=== PATIENT | female | born 1985 | race Caucasian/White ===

== ENCOUNTER → 2024-08-04 | Outpatient (CLI) | payer OTHER | LOC: LAB SHORT 13:41 → LAB 13:41 | DX: N39.0 Urinary tract infection, site not specified (principal) | CPT/HCPCS: 87077; 87086; 87147; 87186 ==

== ENCOUNTER → 2024-10-09 | Outpatient (CLI) | payer OTHER ==
[~2024-10-09] MED LIST: ACET325 PO; ELIQUIS5 M2 PO; FAMO20 PO; METR500 PO
[2024-10-09 17:50] LABS: BASOPHILS ABSOLUTE AUTO 0.04 K/mm3 (0.00-0.23); BASOPHILS PERCENT AUTO 0 % (0-2); EOSINOPHILS ABSOLUTE AUTO 0.03 K/mm3 (0.00-0.68); EOSINOPHILS PERCENT AUTO 0 % (0-6); Hemoglobin 9.7 g/dL (11.5-16.0); IMMATURE GRAN ABSOLUTE AUTO 0.07 K/mm3 (0.00-0.10); IMMATURE GRAN PERCENT AUTO 1 % (0-1); LYMPHOCYTES ABSOLUTE AUTO 0.86 K/mm3 (0.84-5.20); LYMPHOCYTES PERCENT AUTO 8 % (21-46); MONOCYTES ABSOLUTE AUTO 0.98 K/mm3 (0.16-1.47); MONOCYTES PERCENT AUTO 9 % (4-13); Mean Corpuscular HGB 26.2 pg (26.0-34.0); Mean Corpuscular HGB Conc 31.3 g/dL (31.5-36.5); Mean Corpuscular Volume 84 fL (80-100); NEUTROPHILS ABSOLUTE AUTO 9.27 K/mm3 (1.96-9.15); NEUTROPHILS PERCENT AUTO 82 % (41-73); Platelet Count 357 K/mm3 (150-400); RDW Coefficient Variation 15.6 % (11.7-14.2); RDW Standard Deviation 46.9 fL (35.1-46.3); White Blood Cell Count 11.25 K/mm3 (4.00-11.30)
[2024-10-09 18:00] LABS: Albumin, Blood 2.9 g/dL (3.4-5.0); Albumin/Globulin Ratio 0.5 (0.8-1.8); Bilirubin, Total 0.6 mg/dL (0.1-1.0); Bun/Creatinine Ratio 6.9 (12.0-20.0); Calcium, Blood 9.6 mg/dL (8.5-10.1); Creatinine, Blood 2.45 mg/dL (0.40-1.00); Globulin, Blood 6.2 g/dL (2.2-4.0); Potassium, Blood 4.2 mmol/L (3.5-5.5); Total Protein, Blood 9.1 g/dL (6.4-8.2)
== END ==
LOC: LAB 17:45 → LAB SHORT 17:45
PROVIDERS: Internal Medicine
DX: R11.10 Vomiting, unspecified (principal)
CPT/HCPCS: 80053; 83690; 85025

== ENCOUNTER 2024-10-14 10:16 | Emergency (ER) | payer OTHER ==
[~2024-10-14] VITALS: Ht 172.7 cm; Wt 115.7 kg
[2024-10-14] MEDS ORDERED: LORazepam 2 MG/ML 1ML Injection IV ONE (11:05)
[2024-10-14 11:07] LABS: BASOPHILS ABSOLUTE AUTO 0.08 K/mm3 (0.00-0.23); BASOPHILS PERCENT AUTO 1 % (0-2); EOSINOPHILS ABSOLUTE AUTO 0.02 K/mm3 (0.00-0.68); EOSINOPHILS PERCENT AUTO 0 % (0-6); Hematocrit 30.6 % (33.0-51.0); Hemoglobin 9.7 g/dL (11.5-16.0); IMMATURE GRAN ABSOLUTE AUTO 0.06 K/mm3 (0.00-0.10); IMMATURE GRAN PERCENT AUTO 1 % (0-1); LYMPHOCYTES ABSOLUTE AUTO 1.53 K/mm3 (0.84-5.20); LYMPHOCYTES PERCENT AUTO 13 % (21-46); MONOCYTES ABSOLUTE AUTO 1.42 K/mm3 (0.16-1.47); MONOCYTES PERCENT AUTO 12 % (4-13); Mean Corpuscular HGB 26.1 pg (26.0-34.0); Mean Corpuscular HGB Conc 31.7 g/dL (31.5-36.5); Mean Corpuscular Volume 83 fL (80-100); Mean Platelet Volume 8.9 fL (9.1-12.4); NEUTROPHILS ABSOLUTE AUTO 8.82 K/mm3 (1.96-9.15); NEUTROPHILS PERCENT AUTO 74 % (41-73); Platelet Count 383 K/mm3 (150-400); RDW Coefficient Variation 15.9 % (11.7-14.2); RDW Standard Deviation 47.8 fL (35.1-46.3); Red Blood Cell Count 3.71 M/mm3 (3.80-5.20); White Blood Cell Count 11.93 K/mm3 (4.00-11.30)
[2024-10-14 11:22] LABS: Albumin/Globulin Ratio 0.5 (0.8-1.8); Bilirubin, Total 0.8 mg/dL (0.1-1.0); Bun/Creatinine Ratio 6.7 (12.0-20.0); Creatinine, Blood 2.08 mg/dL (0.40-1.00); Globulin, Blood 6.6 g/dL (2.2-4.0); Potassium, Blood 4.3 mmol/L (3.5-5.5); Total Protein, Blood 9.6 g/dL (6.4-8.2)
[2024-10-14] MEDS ORDERED: Ondansetron HCl 2 MG / ML 2ML Vial IV ONE (11:40)
[2024-10-14] MEDS ORDERED: NS 1,000 ML IV SCH (11:40)
[2024-10-14 14:40] LABS: Source, Urine Clean Catch
[2024-10-14 14:43] LABS: Appearance, Urine Clear (Clear); Bilirubin, Urine Neg (Neg); Blood, Urine 3+ (Neg); Color, Urine Amber (P-Yellow); Glucose Qualitative, Urine Neg (Neg); Ketones, Urine 1+ (Neg); Leukocyte Esterase, Urine 1+ (Neg); Nitrite, Urine Neg (Neg); Protein, Urine 3+ (Neg); Specific Gravity, Urine 1.015 (1.003-1.022); Urobilinogen, Urine 1+ (Normal); pH, Urine 6.5 (5.0-8.0)
[2024-10-14 14:50] LABS: Bacteria Many /hpf; Hyaline Casts 0-2 /lpf (0-2); Squamous Epithelial Cells Many /hpf (Few); Transitional Epithelial Cells Rare /hpf (0-Rare)
[2024-10-14] MEDS ORDERED: Metoclopramide HCl 5MG / ML 2ML Vial IV ONE (16:30)
[2024-10-14] MEDS ORDERED: HYDROmorphone HCl/Pf 1MG SYR IV ONE (16:30)
[2024-10-14] MEDS ORDERED: ELIQUIS5 M2 PO (18:55)
[2024-10-14] MEDS ORDERED: Apixaban 5 MG Tab PO ONE (18:55)
== END 2024-10-14 19:23 | disposition home or self-care (01) ==
LOC: ER 10:16
PROVIDERS: Physician Assistant
DX: I82.220 Acute embolism and thrombosis of inferior vena cava (principal); N28.89 Other specified disorders of kidney and ureter; N18.30 Chronic kidney disease, stage 3 unspecified; D63.1 Anemia in chronic kidney disease; N25.81 Secondary hyperparathyroidism of renal origin; E55.9 Vitamin D deficiency, unspecified; E78.00 Pure hypercholesterolemia, unspecified; D50.8 Other iron deficiency anemias; D51.8 Other vitamin B12 deficiency anemias; D52.8 Other folate deficiency anemias; R76.9 Abnormal immunological finding in serum, unspecified; R94.5 Abnormal results of liver function studies; R94.6 Abnormal results of thyroid function studies
CPT/HCPCS: 74181; 80053; 81001; 83735; 85025; 87086; 93970; 96361; 96374; 96375; 99284-25; A9270; J1171; J2060; J2405; J2765; J7030

== ENCOUNTER → 2024-10-14 | Outpatient (CLI) | payer OTHER ==
[2024-10-14 20:18] LABS: Protein, Urine Quantitative 180.7 mg/dL (0.0-11.9)
[2024-10-19 20:38] LABS: ALPHA-1 %,URINE 12.3 %; BETA GLOBULIN %,URINE 15.1 %; GAMMA GLOBULIN %,URINE 16.6 %; HOURS COLLECTED 24 hr; TOTAL VOLUME 800 mL
== END | disposition home or self-care (01) ==
LOC: LAB 05:05 → LAB SHORT 05:05
PROVIDERS: Internal Medicine Nephrology
DX: N18.30 Chronic kidney disease, stage 3 unspecified (principal); D63.1 Anemia in chronic kidney disease; N25.81 Secondary hyperparathyroidism of renal origin; E55.9 Vitamin D deficiency, unspecified; E78.00 Pure hypercholesterolemia, unspecified; D50.8 Other iron deficiency anemias; D51.8 Other vitamin B12 deficiency anemias; D52.8 Other folate deficiency anemias; R76.9 Abnormal immunological finding in serum, unspecified; R94.5 Abnormal results of liver function studies; R94.6 Abnormal results of thyroid function studies
CPT/HCPCS: 82043; 82570; 84156; 84166; 86335

== ENCOUNTER 2024-10-16 21:11 | Observation (INO) | payer OTHER ==
[~2024-10-16] VITALS: Ht 172.7 cm; Wt 112.0 kg
[~2024-10-16 21:11] MED LIST changes: -ACET325 PO; -FAMO20 PO; -METR500 PO
[2024-10-16 22:31] LABS: BASOPHILS ABSOLUTE AUTO 0.05 K/mm3 (0.00-0.23); BASOPHILS PERCENT AUTO 1 % (0-2); EOSINOPHILS ABSOLUTE AUTO 0.05 K/mm3 (0.00-0.68); EOSINOPHILS PERCENT AUTO 1 % (0-6); Hematocrit 27.1 % (33.0-51.0); Hemoglobin 8.7 g/dL (11.5-16.0); IMMATURE GRAN ABSOLUTE AUTO 0.04 K/mm3 (0.00-0.10); IMMATURE GRAN PERCENT AUTO 0 % (0-1); LYMPHOCYTES PERCENT AUTO 12 % (21-46); MONOCYTES ABSOLUTE AUTO 1.06 K/mm3 (0.16-1.47); MONOCYTES PERCENT AUTO 11 % (4-13); Mean Corpuscular HGB 26.1 pg (26.0-34.0); Mean Corpuscular HGB Conc 32.1 g/dL (31.5-36.5); Mean Corpuscular Volume 81 fL (80-100); Mean Platelet Volume 8.7 fL (9.1-12.4); NEUTROPHILS ABSOLUTE AUTO 7.07 K/mm3 (1.96-9.15); NEUTROPHILS PERCENT AUTO 76 % (41-73); Platelet Count 312 K/mm3 (150-400); RDW Coefficient Variation 16.2 % (11.7-14.2); RDW Standard Deviation 48.2 fL (35.1-46.3); Red Blood Cell Count 3.33 M/mm3 (3.80-5.20); White Blood Cell Count 9.37 K/mm3 (4.00-11.30)
[2024-10-16 22:59] LABS: Albumin, Blood 2.5 g/dL (3.4-5.0); Albumin/Globulin Ratio 0.4 (0.8-1.8); Bilirubin, Total 0.6 mg/dL (0.1-1.0); Bun/Creatinine Ratio 11.8 (12.0-20.0); Calcium, Blood 9.2 mg/dL (8.5-10.1); Creatinine, Blood 1.61 mg/dL (0.40-1.00); Globulin, Blood 6.2 g/dL (2.2-4.0); Total Protein, Blood 8.7 g/dL (6.4-8.2)
[2024-10-17] MEDS ORDERED: Morphine Sulfate 4 MG/1 ML Injection IV ONE (03:05)
[2024-10-17] MEDS ORDERED: Ondansetron HCl 2 MG / ML 2ML Vial IV ONE (03:05)
[2024-10-17 03:23] LABS: Hematocrit 26.6 % (33.0-51.0); Hemoglobin 8.5 g/dL (11.5-16.0)
[2024-10-17 05:25] LABS: Source, Urine Clean Catch
[2024-10-17 05:40] LABS: Appearance, Urine Cloudy (Clear); Bilirubin, Urine Neg (Neg); Blood, Urine 5+ (Neg); Color, Urine Yellow (P-Yellow); Glucose Qualitative, Urine Neg (Neg); Ketones, Urine 1+ (Neg); Leukocyte Esterase, Urine 1+ (Neg); Nitrite, Urine Neg (Neg); Protein, Urine 3+ (Neg); Specific Gravity, Urine 1.005 (1.003-1.022); Urobilinogen, Urine NORM (Normal); pH, Urine 6.5 (5.0-8.0)
[2024-10-17 05:58] LABS: Bacteria Mod /hpf; Red Blood Cells, Urine TNTC /hpf (0-2); Squamous Epithelial Cells Few /hpf (Few); White Blood Cells, Urine 0-2 /hpf (0-5)
[2024-10-17 09:35] LABS: Hematocrit 27.6 % (33.0-51.0); Hemoglobin 8.5 g/dL (11.5-16.0); Mean Corpuscular HGB 25.6 pg (26.0-34.0); Mean Corpuscular HGB Conc 30.8 g/dL (31.5-36.5); Mean Corpuscular Volume 83 fL (80-100); Mean Platelet Volume 8.7 fL (9.1-12.4); Platelet Count 315 K/mm3 (150-400); RDW Coefficient Variation 16.3 % (11.7-14.2); RDW Standard Deviation 49.1 fL (35.1-46.3); Red Blood Cell Count 3.32 M/mm3 (3.80-5.20); White Blood Cell Count 7.69 K/mm3 (4.00-11.30)
[2024-10-17] MEDS ORDERED: FAMO20 PO (12:19)
[2024-10-17] MEDS ORDERED: Apixaban 5 MG Tab PO SCH (12:30)
[2024-10-17] MEDS ORDERED: FLU VACC TS2024-25(6MOS UP)/PF 45 MCG/0.5 ML SYRINGE IM SCH (12:30)
[2024-10-17] MEDS ORDERED: Ondansetron HCl 2 MG / ML 2ML Vial IV PRN (13:15)
[2024-10-17 13:17] LABS: Hematocrit 26.2 % (33.0-51.0); Hemoglobin 8.3 g/dL (11.5-16.0)
[2024-10-17] MEDS ORDERED: MetroNIDAZOLE 500 MG Tab PO SCH (13:30)
--- NOTE | 2024-10-17 14:39 | NUR ---
RECEIVED REPORT FROM KAHLIL SALAZAR FROM ED.
[2024-10-17] MEDS ORDERED: NS 250 ML IV PRN (14:45)
--- NOTE | 2024-10-17 15:48 | NUR ---
1454-PT ARRIVED TO ROOM AOX4, COOPERATIVE, ABLE TO MAKE NEEDS KNOWN. TRANSFERRED VIA SBA TO BED. PICTURES TAKEN OF SKIN PROBLEMS IN CHART.
[2024-10-17] MEDS ORDERED: TraMADol HCl 50 MG Tab PO PRN (17:25)
[2024-10-17] MEDS ORDERED: Acetaminophen 325 MG TABLET PO PRN (17:25)
--- NOTE | 2024-10-17 17:26 | NUR ---
SHIFT SUMMARY PT AOX4, COOPERATIVE, ABLE TO MAKE NEEDS KNOWN. PT DOES EXPRESS 8/10 FLANK PAIN, MD NOTIFIED TO ORDER PAIN MANAGEMENT. PT DOES NOT HAVE TEETH, STILL PREFERS REGULAR DIET. IF H/H IS STABLE IN AM, POSSIBILITY OF GOING HOME TOMORROW. IF BLEEDING PERSISTS, CALL [facility] [employer] IN[employer] SURGEON FOR RECOMMENDATIONS. BED IN LOWEST POSITION, CALL LIGHT WITHIN REACH.
--- NOTE | 2024-10-17 18:25 | NUR ---
PT INFORMED THIS RN ABOUT LOWER EXTREMITIES FEELING COLD AND SLIGHTLY DISCOLORED. THIS RN PERFORMED PEN-POKE TEST, PT REPORTED FEELING TINGLING AND NO PAIN. THIS RN CALLED MD AND LEFT VOICEMAIL, AWAITING CALL BACK.
[2024-10-17 18:35] LABS: Hematocrit 26.3 % (33.0-51.0); Hemoglobin 8.4 g/dL (11.5-16.0)
[2024-10-17 19:30] VITALS: BP 138/98
[2024-10-17] MEDS ORDERED: Famotidine 20 MG Tab PO SCH (21:00)
[2024-10-18 00:57] LABS: Hematocrit 27.2 % (33.0-51.0); Hemoglobin 8.7 g/dL (11.5-16.0)
[2024-10-18 02:56] VITALS: BP 146/94
--- NOTE | 2024-10-18 05:08 | NUR ---
SHIFT SUMMARY PT ALERT ORIENTED X 4 CALLS APPROPRIATELY. C/O FLANK PAIN MEDICATED WITH TRAMADOL WITH GOOD PAIN RELIEF. SHE ALSO C/O NAUSEA MEDICATED WITH ZOFRAN WITH GOOD RELIEF. SHE DID HAVE 2X URINE OUTPUT THAT WAS PINK IN COLOR BUT IT IS NOW CLEAR YELLOW. HER H&H WAS DONE AT 0052 AND IT WAS 8.7 AND 27.2. HER H&H WILL BE REDRAWN AT 0630. SHE DID HAVE A SLIGHT INCREASED TEMP OF 100.4 THIS AM. BUT HER ROOM IS A LITTLE WARM. SHE IS DUE TO HAVE SURGERY NEXT WEEK AT [facility] WITH DR. MOODY. SHE REFUSED TO TAKE ANY TYLENOL FOR THE SLIGHT FEVER. 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 RESTING IN BED AT THIS TIME WITH CALL LIGHT IN REACH
[2024-10-18 06:24] LABS: Hematocrit 27.3 % (33.0-51.0); Hemoglobin 8.5 g/dL (11.5-16.0); Mean Corpuscular HGB 25.9 pg (26.0-34.0); Mean Corpuscular HGB Conc 31.1 g/dL (31.5-36.5); Mean Corpuscular Volume 83 fL (80-100); Mean Platelet Volume 8.4 fL (9.1-12.4); Platelet Count 316 K/mm3 (150-400); RDW Coefficient Variation 16.2 % (11.7-14.2); RDW Standard Deviation 49.3 fL (35.1-46.3); Red Blood Cell Count 3.28 M/mm3 (3.80-5.20); White Blood Cell Count 7.16 K/mm3 (4.00-11.30)
[2024-10-18 06:43] LABS: Albumin, Blood 2.5 g/dL (3.4-5.0); Albumin/Globulin Ratio 0.4 (0.8-1.8); Bilirubin, Total 0.4 mg/dL (0.1-1.0); Bun/Creatinine Ratio 11.5 (12.0-20.0); Calcium, Blood 9.6 mg/dL (8.5-10.1); Creatinine, Blood 1.56 mg/dL (0.40-1.00); Globulin, Blood 5.8 g/dL (2.2-4.0); Potassium, Blood 3.7 mmol/L (3.5-5.5); Total Protein, Blood 8.3 g/dL (6.4-8.2)
[2024-10-18 07:40] VITALS: BP 138/94
[2024-10-18] MEDS ORDERED: Polyethylene Glycol 3350 17 gm PO ONE (11:00)
[2024-10-18] MEDS ORDERED: ACET325 PO (11:39)
[2024-10-18] MEDS ORDERED: METR500 PO (11:39)
--- NOTE | 2024-10-18 12:18 | NUR ---
THIS RN CONTACTED ABOUT [facility] DRA[facility] DUE TO DISCHARGE, MD INFORMED TO CANCEL [facility]RA[facility].
--- NOTE | 2024-10-18 12:43 | NUR ---
DISCHARGE PT AOX4, COOPERATIVE, ABLE TO MAKE NEEDS KNOWN. PT DISCHARGED WITH BELONGINGS IN HANDS. THIS RN WENT OVER DC PAPERWORK WITH PT. DULCE MARIA KLEIN TRANSPORTED PT USING WHEELCHAIR DOWN TO ENTRANCE TO BE TRANSPORTED HOME WITH FAMILY MEMBER. DULCE MARIA KLEIN REMOVED IV WHICH WAS BLEEDING EXCESSIVELY, REWRAPPED TIGHTER WITH GAUZE AND COBAN AND TOLD TO KEEP ELEVATED. PT INFORMED IF BLEEDING PERSISTS THEN SEEK MEDICAL ATTENTION.
[2024-10-22] MEDS ORDERED: Apixaban 5 MG Tab PO SCH (09:00)
== END 2024-10-18 12:38 | disposition home or self-care (01) ==
LOC: ER 21:11 → ERHOLD 21:12 → MEDS 10-17 14:50
PROVIDERS: Student in an Organized Health Care Education/Training Program; ADMIT Family Medicine
DX: C64.1 Malignant neoplasm of right kidney, except renal pelvis (principal); N83.202 Unspecified ovarian cyst, left side; D64.9 Anemia, unspecified; N76.0 Acute vaginitis; I82.220 Acute embolism and thrombosis of inferior vena cava; K21.9 Gastro-esophageal reflux disease without esophagitis; Z79.01 Long term (current) use of anticoagulants; Z79.899 Other long term (current) drug therapy; Z87.891 Personal history of nicotine dependence
CPT/HCPCS: 36415; 74177; 76857; 80053; 81001; 85014; 85018; 85025; 85027; 87086; 96374-59; 96375; 96376; 99285-25; A9270; G0378; J2270; J2405; Q9967

== ENCOUNTER → 2024-10-20 | Outpatient (CLI) | payer OTHER ==
[~2024-10-20] MED LIST changes: +ACET325 PO; +FAMO20 PO; +METR500 PO
[2024-10-20 10:55] LABS: Hematocrit 28.9 % (33.0-51.0); Hemoglobin 8.9 g/dL (11.5-16.0); Mean Corpuscular HGB 26.3 pg (26.0-34.0); Mean Corpuscular HGB Conc 30.8 g/dL (31.5-36.5); Mean Corpuscular Volume 85 fL (80-100); Mean Platelet Volume 9.3 fL (9.1-12.4); Platelet Count 359 K/mm3 (150-400); RDW Coefficient Variation 16.6 % (11.7-14.2); RDW Standard Deviation 51.7 fL (35.1-46.3); Red Blood Cell Count 3.39 M/mm3 (3.80-5.20); White Blood Cell Count 8.46 K/mm3 (4.00-11.30)
[2024-10-20 11:09] LABS: Albumin, Blood 2.5 g/dL (3.4-5.0); Albumin/Globulin Ratio 0.4 (0.8-1.8); Bilirubin, Total 0.3 mg/dL (0.1-1.0); Bun/Creatinine Ratio 13.4 (12.0-20.0); Calcium, Blood 8.9 mg/dL (8.5-10.1); Creatinine, Blood 1.27 mg/dL (0.40-1.00); Globulin, Blood 5.9 g/dL (2.2-4.0); Total Protein, Blood 8.4 g/dL (6.4-8.2)
== END ==
LOC: LAB SHORT 07:55 → LAB 07:55 → LAB FUT 10-12 11:05
PROVIDERS: Physician Assistant
DX: E78.00 Pure hypercholesterolemia, unspecified (principal); N18.30 Chronic kidney disease, stage 3 unspecified; N18.4 Chronic kidney disease, stage 4 (severe); D63.1 Anemia in chronic kidney disease; E55.9 Vitamin D deficiency, unspecified; N25.81 Secondary hyperparathyroidism of renal origin; R76.9 Abnormal immunological finding in serum, unspecified; R94.5 Abnormal results of liver function studies; R94.6 Abnormal results of thyroid function studies
CPT/HCPCS: 36415; 80053; 85027

== ENCOUNTER 2024-12-03 12:25 | Inpatient (IN) | payer OTHER ==
[~2024-12-03] VITALS: Ht 170.2 cm; Wt 55.9 kg
[2024-12-03 13:31] LABS: BASOPHILS ABSOLUTE AUTO 0.07 K/mm3 (0.00-0.23); BASOPHILS PERCENT AUTO 1 % (0-2); EOSINOPHILS ABSOLUTE AUTO 0.17 K/mm3 (0.00-0.68); EOSINOPHILS PERCENT AUTO 1 % (0-6); Hematocrit 28.5 % (33.0-51.0); Hemoglobin 9.3 g/dL (11.5-16.0); IMMATURE GRAN ABSOLUTE AUTO 0.41 K/mm3 (0.00-0.10); IMMATURE GRAN PERCENT AUTO 3 % (0-1); LYMPHOCYTES ABSOLUTE AUTO 1.55 K/mm3 (0.84-5.20); LYMPHOCYTES PERCENT AUTO 13 % (21-46); MONOCYTES ABSOLUTE AUTO 0.88 K/mm3 (0.16-1.47); MONOCYTES PERCENT AUTO 7 % (4-13); Mean Corpuscular HGB 29.1 pg (26.0-34.0); Mean Corpuscular HGB Conc 32.6 g/dL (31.5-36.5); Mean Corpuscular Volume 89 fL (80-100); Mean Platelet Volume 8.6 fL (9.1-12.4); NEUTROPHILS ABSOLUTE AUTO 8.88 K/mm3 (1.96-9.15); NEUTROPHILS PERCENT AUTO 74 % (41-73); Platelet Count 506 K/mm3 (150-400); RDW Coefficient Variation 17.9 % (11.7-14.2); White Blood Cell Count 11.96 K/mm3 (4.00-11.30)
[2024-12-03 13:51] LABS: Albumin, Blood 1.8 g/dL (3.4-5.0); Albumin/Globulin Ratio 0.3 (0.8-1.8); Bilirubin, Total 0.6 mg/dL (0.1-1.0); Bun/Creatinine Ratio 15.1 (12.0-20.0); Calcium, Blood 9.5 mg/dL (8.5-10.1); Creatinine, Blood 0.99 mg/dL (0.40-1.00); Globulin, Blood 6.2 g/dL (2.2-4.0); Potassium, Blood 4.2 mmol/L (3.5-5.5)
[2024-12-03 16:27] LABS: Anti-Xa UFH, PHA Monitoring 0.58 IU/mL; International Normalized Ratio 1.02; Prothrombin Time Results 10.9 Sec (9.7-11.5)
[2024-12-03] MEDS ORDERED: Dose Adjust by Pharmacy XX STA (16:32)
[2024-12-03] MEDS ORDERED: Heparin Sodium 5000 Units/ML 1ML MDV IV ONE (16:35)
[2024-12-03] MEDS ORDERED: Heparin Sodium,Porcine/0.5 NS 500 ML IV SCH (16:35)
[2024-12-03] MEDS ORDERED: OxyCODONE HCL 5 MG TAB PO PRN (16:45)
[2024-12-03] MEDS ORDERED: Acetaminophen 500 MG Tab PO PRN (16:45)
[2024-12-03] MEDS ORDERED: Ondansetron 4 MG TAB PO PRN (16:50)
[2024-12-03] MEDS ORDERED: ELIQUIS5 M2 PO (16:52)
[2024-12-03] MEDS ORDERED: ACETAMINOPHEN500 M2 PO (16:52)
[2024-12-03] MEDS ORDERED: FLU VACC TS2024-25(6MOS UP)/PF 45 MCG/0.5 ML SYRINGE IM SCH (16:55)
[2024-12-03 19:03] VITALS: BP 130/90
[2024-12-04] VITALS (9 sets, daily range): BP systolic 114–134; BP diastolic 74–102
[2024-12-04] MEDS ORDERED: Lactated Ringer's 1,000 ML IV SCH
[2024-12-04] MEDS ORDERED: Dose Adjust by Pharmacy XX STA ×3 (00:06→22:53)
[2024-12-04] MEDS ORDERED: Heparin Sodium 5000 Units/ML 1ML MDV IV ONE ×2 (00:10→07:55)
--- NOTE | 2024-12-04 04:19 | NUR ---
Shift Summary Pt admitted to this floor for DVT of her LLE. Her L thigh is painful 6/10 and she is medicated for pain. Her left foot has 2+ pitting edema while her R foot has 1+ edema. She uses a WC for mobility at BL but is able to pivot transfer to the [facility] independently. Her home WC is in the room. She AOx4 and continent. She has been NPO since 0000 in anticipation of thrombectomy today. A heparin drip has been running t/o the night as ordered, pharmacy called once and increased the rate and added a 4200 unit bolus. LR was ordered to start at 0000, pt is a difficult IV stick and ate dinner with 500 mL+ fluids. I called the night hospitalist who OK'd holding the LR for now.
[2024-12-04 06:38] LABS: Hematocrit 27.8 % (33.0-51.0); Hemoglobin 8.7 g/dL (11.5-16.0); Mean Corpuscular HGB 28.5 pg (26.0-34.0); Mean Corpuscular HGB Conc 31.3 g/dL (31.5-36.5); Mean Corpuscular Volume 91 fL (80-100); Mean Platelet Volume 8.2 fL (9.1-12.4); Platelet Count 447 K/mm3 (150-400); RDW Coefficient Variation 18.2 % (11.7-14.2); RDW Standard Deviation 60.8 fL (35.1-46.3); Red Blood Cell Count 3.05 M/mm3 (3.80-5.20); White Blood Cell Count 10.63 K/mm3 (4.00-11.30)
[2024-12-04 07:03] LABS: Albumin, Blood 1.8 g/dL (3.4-5.0); Albumin/Globulin Ratio 0.3 (0.8-1.8); Bilirubin, Total 0.3 mg/dL (0.1-1.0); Bun/Creatinine Ratio 15.5 (12.0-20.0); Creatinine, Blood 0.97 mg/dL (0.40-1.00); Globulin, Blood 5.7 g/dL (2.2-4.0); Potassium, Blood 3.9 mmol/L (3.5-5.5); Total Protein, Blood 7.5 g/dL (6.4-8.2)
[2024-12-04] MEDS ORDERED: Docusate Sodium/Senna 1 Tab PO SCH (09:00)
[2024-12-04 09:27] LABS: BASOPHILS PERCENT MAN 1 % (0-2); EOSINOPHILS PERCENT MAN 1 % (0-6); LYMPHOCYTES ABSOLUTE MAN 1.38 K/mm3 (0.84-5.20); LYMPHOCYTES PERCENT MAN 13 % (21-46); MONOCYTES ABSOLUTE MAN 1.06 K/mm3 (0.16-1.47); MONOCYTES PERCENT MAN 10 % (4-13); NEUTROPHILS ABSOLUTE MAN 7.97 K/mm3 (1.96-9.15); SEG NEUTROPHILS PERCENT MAN 75 % (41-73); TOTAL CELLS COUNTED 100
[2024-12-04] MEDS ORDERED: Heparin Sodium 1000 Units/ML 10ML MDV ONE ×3 (12:44→14:32)
[2024-12-04] MEDS ORDERED: NS 1,000 ML IV ONE ×2 (12:44→12:46)
[2024-12-04] MEDS ORDERED: Midazolam HCl 1MG / ML 2ML Vial ONE ×2 (12:46→13:34)
[2024-12-04] MEDS ORDERED: FentaNYL Citrate 50 MCG/ML 2 ML Injection ONE ×2 (12:46→14:14)
--- NOTE | 2024-12-04 12:59 | NUR ---
PT TRANSPORTED TO THE OR BY CHIEF PROCUREMENT OFFICER. PT A&OX4, VSS, USED THE BSC PRIOR TO TRANSPORT, AND DENIED PAIN. PHARMACY NOTIFIED OF HEP DRIP PAUSE.
[2024-12-04] MEDS ORDERED: Alteplase Recombinant 2 MG / Vial ONE (14:17)
[2024-12-04] MEDS ORDERED: NS 500 ML IV ONE (14:32)
--- NOTE | 2024-12-04 15:21 | NUR ---
PT ARRIVED BACK TO THE FLOOR AT 1515. PT A&OX4, VSS, AND DENIED PAIN. PHARMACY NOTIFIED PT BACK IN THE ROOM AND HEP DRIP RESUMED PER EMAR.
[2024-12-04 16:22] LABS: Hematocrit 27.2 % (33.0-51.0); Hemoglobin 8.6 g/dL (11.5-16.0); Mean Corpuscular HGB Conc 31.6 g/dL (31.5-36.5); Mean Corpuscular Volume 92 fL (80-100); Mean Platelet Volume 8.2 fL (9.1-12.4); Platelet Count 488 K/mm3 (150-400); RDW Coefficient Variation 18.1 % (11.7-14.2); RDW Standard Deviation 59.5 fL (35.1-46.3); Red Blood Cell Count 2.97 M/mm3 (3.80-5.20); White Blood Cell Count 14.13 K/mm3 (4.00-11.30)
--- NOTE | 2024-12-04 17:46 | NUR ---
SHIFT SUMMARY PT A&OX4, VSS, TOLERATING PO, VOIDING, AND PAIN MANAGED PER EMAR. PT HAD THROMBECTOMY THIS SHIFT W/ PLACEMENT OF BILAT FLOWSTASIS W/ PRESSURE DRESSINGS. HEP DRIP CONT TO INFUSE PER ORDER. NO OTHER ACUTE CHANGES. CALL LIGHT WITHIN REACH AND PT ABLE TO MAKE NEEDS KNOWN.
[2024-12-04] MEDS ORDERED: MIRALAX17 GM PO (18:01)
[2024-12-04] MEDS ORDERED: SENN187 PO (18:01)
[2024-12-04] MEDS ORDERED: OXAYDO5 M7 PO (18:01)
[2024-12-04] MEDS ORDERED: Vitamin D1000 UNI1 PO (18:03)
[2024-12-05 01:16] VITALS: BP 127/84
--- NOTE | 2024-12-05 05:18 | NUR ---
Shift Summary Flow statsis and pressure dressings intact, pt remaining in bed t/o the night with a purewick for voids. Compression stalkings placed BLE. Pt c/o pain behind her knees, medicated x1 for pain. Heparin drip cont. t/o the shift, pharmacy increased the rate once again. Pt is AOx4, she was able to sleep comfortably t/o most of the night.
[2024-12-05 05:24] VITALS: BP 121/84
[2024-12-05 06:06] LABS: Hematocrit 25.3 % (33.0-51.0); Hemoglobin 7.9 g/dL (11.5-16.0); Mean Platelet Volume 8.4 fL (9.1-12.4); Platelet Count 499 K/mm3 (150-400)
[2024-12-05] MEDS ORDERED: Dose Adjust by Pharmacy XX STA ×2 (06:38→14:13)
[2024-12-05 07:41] VITALS: BP 122/83
[2024-12-05] MEDS ORDERED: Heparin Sodium 5000 Units/ML 1ML MDV IV ONE (14:15)
[2024-12-05 15:37] VITALS: BP 128/84
[2024-12-05] MEDS ORDERED: Apixaban 5 MG Tab PO SCH (18:00)
--- NOTE | 2024-12-05 18:37 | NUR ---
SHIFT SUMMARY FLOWSTASIS REMOVED THIS AM. HEP DRIP CONT TO INFUSE PER ORDER. NO OTHER ACUTE CHANGES. CALL LIGHT WITHIN REACH AND PT ABLE TO MAKE NEEDS KNOWN.
--- NOTE | 2024-12-05 19:55 | NUR ---
HEPARIN AMENA DC'D @ 1999.
[2024-12-05 21:01] VITALS: BP 126/78
[2024-12-06 00:45] VITALS: BP 134/78
[2024-12-06 04:06] VITALS: BP 131/88
--- NOTE | 2024-12-06 04:55 | NUR ---
AAOX4, COOPERATIVE AND PLEASANT. TYLENOL GIVEN FOR L THIGH PAIN. DENIES PAIN THIS AM. TELE IN PLACE, ST. USING BSC, WC @ BASELINE. NO ACUTE NEEDS OVERNIGHT, SLEPT WELL
[2024-12-06 06:13] LABS: BASOPHILS ABSOLUTE AUTO 0.07 K/mm3 (0.00-0.23); BASOPHILS PERCENT AUTO 1 % (0-2); EOSINOPHILS ABSOLUTE AUTO 0.08 K/mm3 (0.00-0.68); EOSINOPHILS PERCENT AUTO 1 % (0-6); Hematocrit 22.7 % (33.0-51.0); IMMATURE GRAN ABSOLUTE AUTO 0.21 K/mm3 (0.00-0.10); IMMATURE GRAN PERCENT AUTO 2 % (0-1); LYMPHOCYTES ABSOLUTE AUTO 1.21 K/mm3 (0.84-5.20); LYMPHOCYTES PERCENT AUTO 13 % (21-46); MONOCYTES ABSOLUTE AUTO 0.89 K/mm3 (0.16-1.47); MONOCYTES PERCENT AUTO 9 % (4-13); Mean Corpuscular HGB 28.2 pg (26.0-34.0); Mean Corpuscular HGB Conc 30.8 g/dL (31.5-36.5); Mean Corpuscular Volume 92 fL (80-100); Mean Platelet Volume 8.4 fL (9.1-12.4); NEUTROPHILS ABSOLUTE AUTO 7.17 K/mm3 (1.96-9.15); NEUTROPHILS PERCENT AUTO 75 % (41-73); Platelet Count 506 K/mm3 (150-400); RDW Standard Deviation 59.8 fL (35.1-46.3); Red Blood Cell Count 2.48 M/mm3 (3.80-5.20); White Blood Cell Count 9.63 K/mm3 (4.00-11.30)
[2024-12-06 06:51] LABS: Albumin, Blood 1.9 g/dL (3.4-5.0); Albumin/Globulin Ratio 0.4 (0.8-1.8); Bilirubin, Total 0.3 mg/dL (0.1-1.0); Bun/Creatinine Ratio 12.1 (12.0-20.0); Calcium, Blood 9.1 mg/dL (8.5-10.1); Creatinine, Blood 1.24 mg/dL (0.40-1.00); Globulin, Blood 5.3 g/dL (2.2-4.0); Potassium, Blood 4.1 mmol/L (3.5-5.5); Total Protein, Blood 7.2 g/dL (6.4-8.2)
[2024-12-06 07:54] VITALS: BP 124/86
[2024-12-06 14:04] LABS: BASOPHILS ABSOLUTE AUTO 0.08 K/mm3 (0.00-0.23); BASOPHILS PERCENT AUTO 1 % (0-2); EOSINOPHILS ABSOLUTE AUTO 0.09 K/mm3 (0.00-0.68); EOSINOPHILS PERCENT AUTO 1 % (0-6); Hematocrit 24.7 % (33.0-51.0); Hemoglobin 7.8 g/dL (11.5-16.0); IMMATURE GRAN ABSOLUTE AUTO 0.12 K/mm3 (0.00-0.10); IMMATURE GRAN PERCENT AUTO 1 % (0-1); LYMPHOCYTES PERCENT AUTO 13 % (21-46); MONOCYTES ABSOLUTE AUTO 0.76 K/mm3 (0.16-1.47); MONOCYTES PERCENT AUTO 7 % (4-13); Mean Corpuscular HGB 28.5 pg (26.0-34.0); Mean Corpuscular HGB Conc 31.6 g/dL (31.5-36.5); Mean Corpuscular Volume 90 fL (80-100); Mean Platelet Volume 8.1 fL (9.1-12.4); NEUTROPHILS PERCENT AUTO 78 % (41-73); Platelet Count 506 K/mm3 (150-400); RDW Coefficient Variation 17.8 % (11.7-14.2); RDW Standard Deviation 58.5 fL (35.1-46.3); Red Blood Cell Count 2.74 M/mm3 (3.80-5.20); White Blood Cell Count 10.95 K/mm3 (4.00-11.30)
--- NOTE | 2024-12-06 15:49 | NUR ---
SHIFT SUMMARY PT AWAKE DURING SHIFT REPORT THIS AM. PT UP INDEPENDENTLY TO BSC TO VOID AND HAVE BM. PT REQUESTING TO AMBULATE TO [facility]. DR PURCELL IN TO SEE PT AND DISCUSS PLAN OF CARE. PT CLEARED TO AMBULATE IN TO [facility]. H/H CK'D THIS AFTERNOON AND THEN D/C ORDERS PLACED. PT ADMITTED FOR DVT; LLE VERY SWOLLEN. THAIS HOSE IN PLACE. RECENT HX OF RENAL CA WITH R KIDNEY REMOVAL. MIDLINE INCISION WITH Y TO R ABD WNL'S. AMT OF DRAINAGE IN LOWER ABD AREA; ABD PAD INPLACE. DR PURCELL AWARE. PER REPORT, HEPARIN DRIP D/C'D YESTERDAY AND PT STARTED ON ELIQUIS. PT'S FAMILY IN TO VISIT TODAY, SOME REMAIN. D/C ORDERS IN PLACE; PT AWARE. DENIES FURTHER NEEDS. CALL LT IN PLACE.
[2024-12-12] MEDS ORDERED: Apixaban 5 MG Tab PO SCH (18:00)
== END 2024-12-06 18:07 | disposition home health service (06) | DRG 271 ==
LOC: ER 12:25 → MEDS 16:41 → ERHOLD 16:41 → MEDS 18:40
PROVIDERS: Emergency Medicine; Internal Medicine; Radiology Diagnostic Radiology; Student in an Organized Health Care Education/Training Program; ADMIT Student in an Organized Health Care Education/Training Program
PROC: 06CN3ZZ Extirpation of Matter from Left Femoral Vein, Percutaneous Approach (ICD-10-PCS; principal; 2024-12-04)
PROC: 06CM3ZZ Extirpation of Matter from Right Femoral Vein, Percutaneous Approach (ICD-10-PCS; 2024-12-04)
PROC: 06CD3ZZ Extirpation of Matter from Left Common Iliac Vein, Percutaneous Approach (ICD-10-PCS; 2024-12-04)
PROC: 06CC3ZZ Extirpation of Matter from Right Common Iliac Vein, Percutaneous Approach (ICD-10-PCS; 2024-12-04)
PROC: 06CG3ZZ Extirpation of Matter from Left External Iliac Vein, Percutaneous Approach (ICD-10-PCS; 2024-12-04)
PROC: 06CF3ZZ Extirpation of Matter from Right External Iliac Vein, Percutaneous Approach (ICD-10-PCS; 2024-12-04)
PROC: 06CY3ZZ Extirpation of Matter from Lower Vein, Percutaneous Approach (ICD-10-PCS; 2024-12-04)
PROC: 06C03ZZ Extirpation of Matter from Inferior Vena Cava, Percutaneous Approach (ICD-10-PCS; 2024-12-04)
PROC: B51D1ZZ Fluoroscopy of Bilateral Lower Extremity Veins using Low Osmolar Contrast (ICD-10-PCS; 2024-12-04)
DX: I82.413 Acute embolism and thrombosis of femoral vein, bilateral (principal); Z68.41 Body mass index [BMI] 40.0-44.9, adult; I82.433 Acute embolism and thrombosis of popliteal vein, bilateral; I82.423 Acute embolism and thrombosis of iliac vein, bilateral; I82.220 Acute embolism and thrombosis of inferior vena cava; N18.2 Chronic kidney disease, stage 2 (mild); D64.9 Anemia, unspecified; D72.829 Elevated white blood cell count, unspecified; D75.839 Thrombocytosis, unspecified; I82.442 Acute embolism and thrombosis of left tibial vein; I82.812 Embolism and thrombosis of superficial veins of left lower extremity; I82.452 Acute embolism and thrombosis of left peroneal vein; I82.4Z2 Acute embolism and thrombosis of unspecified deep veins of left distal lower extremity; E66.9 Obesity, unspecified; Z90.5 Acquired absence of kidney; Z85.528 Personal history of other malignant neoplasm of kidney; Z79.01 Long term (current) use of anticoagulants; Z87.891 Personal history of nicotine dependence; Z79.891 Long term (current) use of opiate analgesic; Z86.718 Personal history of other venous thrombosis and embolism
CPT/HCPCS: 36415; 76937; 80053; 85014; 85018; 85025; 85027; 85049; 85347; 85520; 85610; 85730; 93971; 94760; 94762; 99152; 99153; 99285-25; A9270; C1757; C1769; C1887; C1894; J1644; J2250; J2997; J3010; J7030; J7040; Q9967

== ENCOUNTER → 2024-12-13 | Outpatient (CLI) | payer OTHER ==
[~2024-12-13] MED LIST changes: +ACETAMINOPHEN500 M2 PO; +MIRALAX17 GM PO; +OXAYDO5 M7 PO; +SENN187 PO; +Vitamin D1000 UNI1 PO
[2024-12-14 16:21] LABS: Creatinine Urine 44.7 mg/dL (27.00-270.00); Microalbumin, Urine Quant. 10.9 mg/L (0.000-20.000); Protein, Urine Quantitative 25.3 mg/dL (0.0-11.9)
== END ==
LOC: LAB SHORT 10:28 → LAB 10:28 → LAB FUT 12-07 09:40
PROVIDERS: Internal Medicine Nephrology
DX: N18.30 Chronic kidney disease, stage 3 unspecified (principal); D63.1 Anemia in chronic kidney disease; R76.9 Abnormal immunological finding in serum, unspecified; R94.5 Abnormal results of liver function studies; R94.6 Abnormal results of thyroid function studies; D51.8 Other vitamin B12 deficiency anemias; D52.8 Other folate deficiency anemias; D50.9 Iron deficiency anemia, unspecified
CPT/HCPCS: 81050; 82043; 82570; 84156

== ENCOUNTER 2025-10-08 05:12 | Emergency (ER) | payer OTHER ==
[~2025-10-08] VITALS: Ht 170.2 cm; Wt 127.0 kg
== END 2025-10-08 07:17 | disposition home or self-care (01) ==
LOC: ER 05:12
DX: K62.5 Hemorrhage of anus and rectum (principal)
CPT/HCPCS: 99283